=== PATIENT | female | born 1935 ===

== ENCOUNTER 2016-11-28 17:24 | Emergency (ER) | payer MEDICARE ==
[~2016-11-28] VITALS: Ht 157.5 cm; Wt 77.2 kg
[2016-11-28] MEDS ORDERED: morphine INJ 4 MG/ML 1 ML SYRINGE IV PRN (18:00)
[2016-11-28] MEDS ORDERED: ONDANSETRON 2 MG/ML (Z0FRAN) 2 ML VIAL IV ONE (18:00)
[2016-11-28] MEDS ORDERED: SODIUM CHLORIDE FLUSH 3 ML SYR IV PRN (18:00)
[2016-11-28] MEDS ORDERED: SODIUM CHLORIDE FLUSH 10 ML SYR IV PRN (18:00)
[2016-11-28] MEDS ORDERED: ASPIRIN 81 MG CHEW (CHILDREN'S ASA) PO ONE ×2 (18:00→18:35)
[2016-11-28] MEDS ORDERED: SODIUM CHLORIDE 250 ML IV PRN (18:00)
[2016-11-28 18:24] LABS: BASOPHILS % (AUTO) 1 % (0-2); EOSINOPHILS # (AUTO) 0.2 10^3uL; EOSINOPHILS % (AUTO) 2 % (0-4); LYMPHOCYTES # (AUTO) 2.3 X10^3; MEAN CORPUSCULAR HGB CONC 32.9 g/dL (31.0-37.0); MEAN PLATELET VOLUME 10.4 FL (6.0-9.5); MONOCYTES # (AUTO) 1.2 X10^3; MONOCYTES % (AUTO) 12 % (3-11); NEUTROPHILS # (AUTO) 5.9 X10^3; NEUTROPHILS % (AUTO) 61 % (51-67); PLATELET COUNT 335 10^3uL (150-450); WHITE BLOOD COUNT 9.75 10^3uL (4.0-11.0)
[2016-11-28 18:25] LABS: MEAN CORPUSCULAR HEMOGLOBIN 33.2 PG (26.0-34.0); MEAN CORPUSCULAR VOLUME 101 FL (80-100)
[2016-11-28 18:34] LABS: ANION GAP 16.8 MEQ/L (3-15); BUN/CREATININE RATIO 34 (10-20)
[2016-11-28 18:35] LABS: ALBUMIN 4.1 g/dL (3.4-5.0); ALKALINE PHOSPHATASE 58 U/L (38-126); MAGNESIUM* 2.2 mg/dL (1.6-2.3); TOTAL PROTEIN 7.3 g/dL (6.4-8.5)
[2016-11-28 18:44] LABS: CREATINE KINASE < 20 U/L (30-135)
--- NOTE | 2016-11-28 18:54 | NUR ---
Lab called regarding elevated D-Dimer of [id number] Dr[address] Dr[address] Ahuja notified
[2016-11-28] MEDS ORDERED: SODIUM CHLORIDE 250 ML IV SCH (19:15)
[2016-11-28] MEDS ORDERED: CALCIUM GLUCONATE 1,000 MG in D5W (IVPB) 50 ML IV ONE (19:20)
[2016-11-28] MEDS ORDERED: DEXTROSE 50% 25 GM/50 ML SYRINGE IV ONE (19:25)
[2016-11-28] MEDS ORDERED: INSULIN REGULAR 1 UNIT/0.01 ML DOSE IV ONE (19:25)
[2016-11-28 21:27] VITALS: BP 126/38
== END 2016-11-28 21:30 | disposition short-term general hospital (02) ==
LOC: ED 17:47
DX: I20.9 Angina pectoris, unspecified (principal); I11.0 Hypertensive heart disease with heart failure; I50.9 Heart failure, unspecified; N17.9 Acute kidney failure, unspecified; I44.2 Atrioventricular block, complete; E11.9 Type 2 diabetes mellitus without complications
CPT/HCPCS: 36415; 51702; 71010; 80053; 82550; 82553; 83735; 83880; 84443; 84484; 85025; 85379; 85610; 85730; 93005; 96365; 99285; A9270; J0610; J1815; J7050; J7060; 93010

== ENCOUNTER → 2016-11-28 | Outpatient (CLI) | payer MEDICARE | LOC: EMS 21:30 | PROVIDERS: ATTEND Family Medicine | DX: R07.89 Other chest pain (principal); I44.2 Atrioventricular block, complete ==